=== PATIENT | male | born 1985 | race African-American/Black ===

== ENCOUNTER 2018-11-28 16:53 | Emergency (ER) | payer MEDICAID ==
--- NOTE | 2018-11-28 18:04 | Emergency Department Record ---
History of Present Illness - General Chief complaint: Abscess Stated complaint: ABCESS LT EAR Time Seen by Provider: 11/28/18 17:59 Source: Patient Mode of Arrival: Ambulatory Limitations: No limitations - History of Present Illness Initial comments: 33 yo male presents to ED for evaluation of swelling and pain to the left tragus that began 4-5 days ago. Patient reports mild drainage from the lesion, denies fevers, chills, or recent illness. Patient has been on Bactrim for the past 3 days. Patient denies health problems at his baseline. MD complaint: Abscess/boil Onset/Timin -: Days(s) Severity: Moderate Quality: Aching Consistency: Constant Improves with: None Worsens with: None Context: None Associated symptoms: Denies other symptoms Treatments Prior to Arrival: None - Related Data Home Medications Medication Instructions Recorded Confirmed Last Taken Hydroxyzine Pamoate [Vistaril] 50 mg PO DAILY PRN 11/28/18 11/28/18 11/27/18 Lisdexamfetamine Dimesylate 70 mg PO DAILY 11/28/18 11/28/18 11/27/18 [Vyvanse] Mirtazapine [Remeron] 30 mg PO DAILY 11/28/18 11/28/18 11/27/18 Paliperidone [Invega] 3 mg PO BID 11/28/18 11/28/18 11/27/18 Sulfamethoxazole/Trimethoprim 1 each PO BID 11/28/18 11/28/18 11/28/18 [Bactrim Ds Tablet] Terazosin HCl 2 mg PO DAILY 11/28/18 11/28/18 11/27/18 Previous Rx's Medication Instructions Recorded Hydrocodone/Acetaminophen [Gardners 1 each PO Q6H PRN #10 tablet 11/28/18 5-325 Tablet] Sulfamethoxazole/Trimethoprim 1 each PO BID #20 tablet 11/28/18 [Bactrim Ds Tablet] Allergies Allergy/AdvReac Type Severity Reaction Status Date / Time cephalexin [From Keflex] Allergy ANAPHYLAXIS Verified 11/28/18 17:20 clindamycin Allergy SWELLING Verified 11/28/18 17:20 (GENERAL) ciprofloxacin AdvReac NAUSEA AND Verified 11/28/18 17:20 VOMITING Travel Screening - Travel/Exposure Within Last 30 Days Have you traveled within the last 30 days?: No - Travel/Exposure Within Last Year Have you traveled outside the [place] in the last year?: No - Additonal Travel Details Have you been exposed to anyone with a communicable illness?: No - Travel Symptoms Symptom Screening: None Review of Systems Constitutional: Denies: Chills, Fever, Malaise, Night sweats Eyes: Denies: Eye discharge, Eye pain ENT: Denies: Congestion, Ear pain, Epistaxis Respiratory: Denies: Cough, Dyspnea Cardiovascular: Denies: Chest pain, Dyspnea on exertion Endocrine: Denies: Fatigue, Heat or cold intolerance Gastrointestinal: Denies: Abdominal pain, Nausea, Vomiting Genitourinary: Denies: Incontinence, Retention Musculoskeletal: Denies: Arthralgia, Back pain Skin: Denies: Bruising, Change in color Neurological: Denies: Abnormal gait, Confusion Psychiatric: Denies: Anxiety Hematological/Lymphatic: Denies: Anemia, Blood Clots Past Medical History - SOCIAL HISTORY Smoking Status: Current every day smoker Alcohol Use: None Drug Use: Heavy Drug Use Detail:: Marijuana - RESPIRATORY Hx Respiratory Disorders: Yes Hx Asthma: Yes - CARDIOVASCULAR Hx Cardio Disorders: No - NEURO Hx Neuro Disorders: Yes Hx Headaches: Yes - GI Hx GI Disorders: Yes Hx Hepatitis/Jaundice: Yes (Hep C.) - Hx Genitourinary Disorders: No - ENDOCRINE Hx Endocrine Disorders: No - MUSCULOSKELETAL Hx Musculoskeletal Disorders: Yes - PSYCH Hx Psych Problems: Yes Hx Anxiety: Yes Hx Depression: Yes Comment:: shizophrneia, ADHD, MDD, - HEMATOLOGY/ONCOLOGY Hx Anemia: Yes Family Medical History Any Significant Family History?: No Physical Exam - General General Appearance: Alert, Oriented x3, Cooperative, Moderate distress Limitations: No limitations - Head Head exam: Atraumatic, Normocephalic, Normal inspection Head exam detail: negative: Abrasion, Contusion, Philip's sign, General tenderness, Hematoma, Laceration - Eye Eye exam: Normal appearance. negative: Conjunctival injection, Periorbital swelling, Periorbital tenderness, Scleral icterus - ENT Ear exam: Other (STS and induration to the left tragus c/w abscess). negative: Auricular hematoma, Auricular trauma Nasal Exam: negative: Active bleeding, Discharge, Dried blood, Foreign body Mouth exam: negative: Drooling, Laceration, Muffled voice, Tongue elevation - Neck Neck exam: Normal inspection. negative: Meningismus, Tenderness - Respiratory Respiratory exam: Normal lung sounds bilaterally. negative: Respiratory distress, Rhonchi, Stridor, Wheezes - Cardiovascular Cardiovascular Exam: Regular rate, Normal rhythm, Normal heart sounds - GI/Abdominal GI/Abdominal exam: Soft. negative: Rebound, Rigid, Tenderness - Rectal Rectal exam: Deferred - exam: Deferred - Extremities Extremities exam: Normal inspection. negative: Pedal edema, Tenderness - Back Back exam: Denies: CVA tenderness (R), CVA tenderness (L) - Neurological Neurological exam: Alert, Normal gait, Oriented X3 - Psychiatric Psychiatric exam: Normal affect, Normal mood - Skin Skin exam: Normal color. negative: Abrasion Type of lesion: negative: abrasion Course Vital Signs 11/28/18 17:04 Temperature 98.4 F Pulse Rate 100 H Respiratory 20 Rate Blood Pressure 114/73 Pulse Ox 100 - Reevaluation(s) Reevaluation #1: 11/28/18 19:03 1.5 cm cutaneous abscess overlying the left tragus was prepped and draped in sterile fashion. The lesion was then anesthetized with 5 mL of 1% Lidocaine with epinephrine with good anesthesia via auricular. The lesion was then incised with a #11 blade with moderate amount of purulent drainage removed. Patient tolerated the procedure well without complications. Patient was continued on Bactrim while in the ED and instructed to apply warm soaks twice daily. Patient appears stable for discharge at this time. Procedures - Nerve Block Consent Obtained: Verbal consent Time Out Performed: Yes Local Anesthetic Used: LIDOCAINE 1% with EPI Amount of anesthesia used: 5 Side: Left Nerve Blocks: Other (Auricular) Procedure Successful: Yes Complications: None Patient Tolerated Procedure: Fair Disposition Disposition: Discharge Clinical Impression: Abscess of tragus of left ear Disposition: Home, Self-Care Condition: (2) Stable Instructions: Abscess (ED) Additional Instructions: Return to ED if your symptoms worsen or if you have any concerns. Bactrim as directed. Follow-up with your family doctor in 3-5 days as directed. Prescriptions: Sulfamethoxazole/Trimethoprim [Bactrim Ds Tablet] 1 each PO BID #20 tablet Hydrocodone/Acetaminophen [Gardners 5-325 Tablet] 1 each PO Q6H PRN #10 tablet PRN Reason: Pain - Moderate (5-7) Forms: Patient Portal Access Time of Disposition: 19:04 Quality - Quality Measures Quality Measures: N/A - Blood Pressure Screening Does Patient Have Any of the Following: No Blood Pressure Classification: Normal BP Reading Systolic Measurement: 114 Diastolic Measurement: 73 Screening for High Blood Pressure: < Normal BP, F/U Not Required > [G8783]
== END 2018-11-28 19:10 | disposition home or self-care (01) ==
LOC: ER 16:53
DX: H60.02 Abscess of left external ear (principal); F20.9 Schizophrenia, unspecified; F17.210 Nicotine dependence, cigarettes, uncomplicated
CPT/HCPCS: 69000; 99283; 99284